=== PATIENT | male | born 1970 | race Hispanic/Latino ===

== ENCOUNTER 2018-08-11 12:10 | Observation (INO) | payer BC, OTHER ==
[~2018-08-11] VITALS: Ht 182.9 cm; Wt 87.5 kg
[~2018-08-11 12:10] MED LIST: KLONOPIN0.5 MG PO; NEXIUM40 MG PO
--- OUTSIDE RECORDS SUMMARY | 2018-08-11 12:13 | XMS REPORT | Encounter Summary ---
Author Organization Unknown Address [address] [place] [address] Phone [phone] Reason for Visit Medical Complaint Instructions 1. Infected insect bite triamcinolone acetonide 0.1 % topical cream Discussion Note: None recorded. Patient educational handouts: No information available. Plan of Care Patient Instructions use medication as directed. continue with clinda. follow up pcp Reminders Provider Appointments None recorded. Lab None recorded. Referral None recorded. Procedures None recorded. Surgeries None recorded. Imaging None recorded. Medications Name Start Date clindamycin 300 mg capsule triamcinolone acetonide 0.1 % topical cream APPLY A THIN LAYER TO THE AFFECTED AREA(S) BY TOPICAL ROUTE 2 TIMES PER DAY Medications Administered None recorded. Vitals Height Weight BMI Blood Pressure 6 ft 200 lbs 27.1 128/74 Lab Results None recorded. Allergies Code Code System Name Reaction Severity Onset 903332 RxNorm Bactrim Chest Pain Severe 493129 RxNorm Cipro Chest Pain Iodinated Contrast Media - Oral and Iv Dye Rash Moderate Penicillins Chest Pain Severe Sulfa (Sulfonamide Antibiotics) Chest Pain Severe Problems Name Status Onset Date Source Acute Sinusitis Active Encounter Acute Maxillary Sinusitis Active Encounter Allergic Rhinitis Active Encounter Cellulitis Active Encounter Dysuria Active Encounter Discharge from Penis Active Encounter Nonvenomous Insect Bite of Trunk with Infection Active Encounter Procedures Date Name Performed by Appendectomy Information not available Vaccine List Vaccine Type Tdap 09/10/2012 Social History Smoking Status Never Smoker Past Encounters 08/21/2016 Infected Insect Bite Steven Aguilar [facility]-C: [address] [place] [address], Ph. History of Present Illness Hyxf-Ajlzhmk-Zbmhc-Skin Lesion-Bite 1 Reported By: Patient HPI: Location: feet. Quality: itchy, painful, localized. Severity: mild, moderate. Duration: has noted for <1 week. Onset/Timing: abrupt onset. Context: no new detergents or skin products, no one else with similar rash, bite/sting exposure. Aggravating factors: nothing makes it worse. Associated Symptoms: no fever/chills, no muscle aches, no headache, no cold symptoms, no nausea, no vomiting, no diarrhea, no urinary symptoms Review of Systems:ROS as noted in the HPI Review of Systems Basic Reported By: Patient Physical Exam Adult Basic, Adult Male Complete Reported By: Patient Constitutional: General Appearance: healthy-appearing, well-nourished, well-developed. Level of Distress: NAD. Ambulation: ambulating normally Psychiatric: Mental Status: active and alert Lungs: Respiratory effort: no dyspnea, no tachypnea, no use of accessory muscles, no intercostal retractions. Auscultation: breath sounds normal, good air movement Cardiovascular: Heart Auscultation: RRR, no murmurs Skin: Inspection and palpation: rash; macular rash on right foot. mild erythema. no swelling. no puss or discharge
--- OUTSIDE RECORDS SUMMARY | 2018-08-11 12:13 | XMS REPORT | Continuity of Care Document ---
Author Author [facility] Interface Address Unknown Phone Unavailable Problems Problem Status Onset Date Classification Date Reported Comments Source Body mass index 25-29 - overweight 06/17/2018 Diagnosis 06/17/2018 [facility] Sore throat symptom 06/17/2018 Diagnosis 06/17/2018 [facility] Acute sinusitis 06/17/2018 Diagnosis 06/17/2018 [facility] Influenza-like illness 06/17/2018 Diagnosis 06/17/2018 [facility] Acute bacterial sinusitis 06/17/2018 Diagnosis 06/17/2018 [facility] Depressive Disorder 06/17/2018 Problem 06/17/2018 [facility] Wrist impingement syndrome 11/04/2016 Diagnosis 11/04/2016 [facility] Infected insect bite 08/21/2016 Diagnosis 08/21/2016 [facility] Acute Sinusitis Problem 11/04/2016 [facility] Acute Maxillary Sinusitis Problem 11/04/2016 [facility] Allergic Rhinitis Problem 11/04/2016 [facility] Cellulitis Problem 11/04/2016 [facility] Dysuria Problem 11/04/2016 [facility] Discharge from Penis Problem 11/04/2016 [facility] Nonvenomous Insect Bite of Trunk with Infection Problem 11/04/2016 [facility] Medications Medication Details Route Status Patient Instructions Ordering Provider Order Date Source Clonazepam 0.5 MG Oral Tablet [Klonopin] Klonopin 0.5 mg tablet Take 1 tablet 3 times a day by oral route. Active [facility] Naproxen 500 MG Oral Tablet naproxen 500 mg tablet Take 1 tablet twice a day by oral route as needed. Active [facility] Clindamycin 300 MG Oral Capsule clindamycin 300 mg capsule Active [facility] Triamcinolone Acetonide 1 MG/ML Topical Cream triamcinolone acetonide 0.1 % topical cream APPLY A THIN LAYER TO THE AFFECTED AREA(S) BY TOPICAL ROUTE 2 TIMES PER DAY Active [facility] Azelastine hydrochloride 0.137 MG/ACTUAT / Fluticasone propionate 0.05 MG/ACTUAT Metered Dose Nasal [place] [Dymista] Dymista 137 mcg-50 mcg/spray nasal spray 1 spray each nostril bid x 14days Active [facility] Oseltamivir 75 MG Oral Capsule oseltamivir 75 mg capsule Take 1 capsule twice a day by oral route as directed for 5 days. Active [facility] testosterone testosterone Active [facility] Azithromycin 250 MG Oral Tablet Zithromax Z-Murali 250 mg tablet TAKE 2 TABLETS (500 MG) BY ORAL ROUTE ONCE DAILY FOR 1 DAY THEN 1 TABLET (250 MG) BY ORAL ROUTE ONCE DAILY FOR 4 DAYS Active [facility] Allergies, Adverse Reactions, Alerts Substance Category Reaction Severity Reaction type Status Date Reported Comments Source Penicillins Chest pain Severe Allergy to substance 02/24/2011 [facility] Sulfa (Sulfonamide Antibiotics) Chest pain Severe Allergy to substance 02/24/2011 [facility] Bactrim Chest pain Severe Allergy to substance 03/16/2012 [facility] Iodinated Contrast- Oral and Iv Dye Rash Moderate Allergy to substance 03/16/2012 [facility] Iodinated Contrast Media - Oral and Iv Dye Rash Moderate Allergy to substance 03/16/2012 [facility] Cipro Chest pain Allergy to substance 01/18/2015 [facility] Immunizations Immunization Date Given Site Status Last Updated Comments Source Tdap 09/10/2012 completed [facility] Results Order Name Results Value Reference Range Date Interpretation Comments Source Influenza A negative 06/17/2018 [facility] Influenza B negative 06/17/2018 [facility] RESULT negative 06/17/2018 [facility] SWAB LOCATION Left and Right tonsillar pillars 06/17/2018 [facility] Vital Signs Vital Sign Value Date Comments Source Diastolic (mm Hg) 76 06/17/2018 [facility] Height 72 06/17/2018 [facility] Systolic (mm Hg) 116 06/17/2018 [facility] Weight 200 06/17/2018 [facility] Diastolic (mm Hg) 78 11/04/2016 [facility] Height 72 11/04/2016 [facility] Systolic (mm Hg) 118 11/04/2016 [facility] Weight 200 11/04/2016 [facility] Diastolic (mm Hg) 74 08/21/2016 [facility] Height 72 08/21/2016 [facility] Systolic (mm Hg) 128 08/21/2016 [facility] Weight 200 08/21/2016 [facility] Encounters Location Location Details Encounter Type Encounter Number Reason For Visit Attending Provider ADM Date DC Date Status Source [place] - [facility] - [id number] Steven Aguilar, DIRECTOR OF PLACEMENT-C: [address] [place] [address], Ph. [phone] [id number] Steven Robinsuyen 08/21/2016 [facility] [place] - [facility] - [id number] Villegas Lauren, DIRECTOR OF PLACEMENT: [address] [place] [address], Ph. [id number] Nelly Aguilar 11/04/2016 [facility] [place] - [facility] - [id number] Nelly Aguilar, DIRECTOR OF PLACEMENT: [address] [facility] [address], Ph. [id number] Nelly Aguilar 06/17/2018 [facility] [place] - [facility] - [id number] Nelly Aguilar, DIRECTOR OF PLACEMENT: [address] [facility] [place] [address], Ph. [id number] Nelly Aguilar 06/17/2018 [facility] Procedures Procedure Code Date Perfomer Comments Source Appendectomy [facility]
--- OUTSIDE RECORDS SUMMARY | 2018-08-11 12:13 | XMS REPORT | Encounter Summary ---
Author Organization Unknown Address [address] [place] [address] Phone [phone] Reason for Visit Medical Complaint Instructions 1. Wrist impingement syndrome naproxen 500 mg tablet Discussion Note: None recorded. Patient educational handouts: No information available. Plan of Care Patient Instructions Due to clinic limitation, pt is advise to follow up with pcp or urgent care for imaging and further evaluation. If noted worsening over night with radiating pain, seek ER. Ok to use wrist splinter. Reminders Provider Appointments None recorded. Lab None recorded. Referral None recorded. Procedures None recorded. Surgeries None recorded. Imaging None recorded. Medications Name Start Date Klonopin 0.5 mg tablet Take 1 tablet 3 times a day by oral route. naproxen 500 mg tablet Take 1 tablet twice a day by oral route as needed. Medications Administered None recorded. Vitals Height Weight BMI Blood Pressure 6 ft 200 lbs 27.1 kg/m2 118/78 mm[Hg] Lab Results None recorded. Allergies Code Code System Name Reaction Severity Onset 482118 RxNorm Bactrim Chest Pain Severe 799412 RxNorm Cipro Chest Pain Iodinated Contrast- Oral and Iv Dye Rash Moderate Penicillins [...] History Smoking Status Never Smoker Past Encounters 11/04/2016 Wrist Impingement Syndrome SALBADOR Aguilar: [address] [facility], [place] [address], Ph. History of Present Illness Musculoskeletal Complaint Reported By: Patient HPI: Location: pain is not radiating, Location:. Quality: tingling, aching. Severity: improving, moderate (5-7). Duration: started 2days. Onset/Timing: acute. Context: atraumatic. Alleviating factors: OTC medication. Aggravating factors: movement/positioning. Associated Symptoms: no fever/chills, no warmth, no redness, no swelling, no drainage, no ecchymosis, no weakness, no numbness, no radiation, no catching/locking, no popping/clicking, no buckling, no grinding, no instability, no weight loss, no change in bowel/bladder habits, no muscle aches, no headache, tingling Review of Systems Basic Reported By: Patient Physical Exam Adult Basic, Adult Female Complete, Adult Male Complete Reported By: Patient Constitutional: General Appearance: healthy-appearing, well-nourished, well-developed. Level of Distress: NAD. Ambulation: ambulating normally Psychiatric: Mental Status: active and alert. Orientation: to time, to place, to person Eyes: Lids and Conjunctivae: non-injected, no discharge, no pallor. Pupils: PERRLA. Corneas: grossly intact. EOM: EOMI. Lens: clear. Sclerae: non-icteric. Vision: acuity grossly intact Mqa-Sfvg-Nxoqy-Throat: Ears: no lesions on external ear, no outer ear tenderness, EACs clear, TMs clear. Hearing: no hearing loss. Nose: no lesions on external nose, nares patent, no septal deviation, nasal passages clear, no sinus tenderness, no nasal discharge. Lips, Teeth, and Gums: no mouth or lip ulcers, no bleeding gums, normal dentition. Oropharynx: moist mucous membranes, no erythema, no exudates, tonsils not enlarged Neck: Neck: supple, trachea midline, no masses, FROM. Lymph Nodes: no cervical LAD, no supraclavicular LAD. Thyroid: no enlargement, non-tender, no nodules Lungs: Respiratory effort: no dyspnea, no tachypnea, no use of accessory muscles, no intercostal retractions. Auscultation: breath sounds normal Cardiovascular: Heart Auscultation: RRR, no murmurs. Neck vessels: no carotid bruits Musculoskeletal:: Motor Strength and Tone: normal motor strength, normal tone, normal. Joints, Bones, and Muscles: normal movement of all extremities, no bony abnormalities, no contractures, no malalignment, tenderness. Extremities: no cyanosis, no edema, no varicosities, no palpable cord Neurologic: Gait and Station: normal gait, normal station. Cranial Nerves: grossly intact. Sensation: grossly intact. Reflexes: DTRs 2+ bilaterally throughout. Coordination and Cerebellum: bjknjc-hc-fpcd intact, no tremor
--- OUTSIDE RECORDS SUMMARY | 2018-08-11 12:14 | XMS REPORT | Encounter Summary ---
Author Organization Unknown Address [address] [place] [address] Phone [phone] Care Team Providers Care After School Coordinator Name Role Phone Ever Ernandez MD 3 [phone] Reason for Visit Medical Complaint Instructions 1. Acute bacterial sinusitis rapid flu (A+B) Zithromax Z-Murali 250 mg tablet Dymista 137 mcg-50 mcg/spray nasal spray 2. Influenza-like illness oseltamivir 75 mg capsule 3. Sore throat symptom rapid strep group A, throat 4. Body mass index 25-29 - overweight learning about healthy weight Discussion Note Work note given to RTW 06/19/18 Plan of Care Patient Instructions Increase fluid intake. Ibuprofen or tylenol for fever over 100F. Hand washing, vitaminC. If not improve in 3days, call clinic or see pcp. Reminders Provider Appointments None recorded. Lab Rapid Strep Group a, Throat 06/17/2018 [facility] Rapid Flu (A+B) 06/17/2018 [facility] Referral None recorded. Procedures None recorded. Surgeries None recorded. Imaging None recorded. Medications Name Start Date Dymista 137 mcg-50 mcg/spray nasal spray 1 spray each nostril bid x 14days oseltamivir 75 mg capsule Take 1 capsule twice a day by oral route as directed for 5 days. testosterone Zithromax Z-Murali 250 mg tablet TAKE 2 TABLETS (500 MG) BY ORAL ROUTE ONCE DAILY FOR 1 DAY THEN 1 TABLET (250 MG) BY ORAL ROUTE ONCE DAILY FOR 4 DAYS Medications Administered None recorded. Vitals Height Weight BMI Blood Pressure 6 ft 200 lbs 27.1 kg/m2 116/76 mm[Hg] Lab Results Date Name Specimen Result Interpretation Description Value Range Status Address Rapid Flu (A+B) Influenza a negative [facility]: [address] [place] [address] Influenza B negative [facility]: [address] [place] [address] Rapid Strep Group a, Throat Result negative [facility]: [address] [place] [address] Swab Location Left and Right tonsillar pillars [facility]: [address] [facility] Allergies Code Code System Name Reaction Severity Status Onset 140828 RxNorm Bactrim Chest Pain Severe Active 037156 RxNorm Cipro Chest Pain Active Iodinated Contrast- Oral and Iv Dye Rash Moderate Active Penicillins Chest Pain Severe Active Sulfa (Sulfonamide Antibiotics) Chest Pain Severe Active Problems Name Status Onset Date Source Depressive Disorder Active 06/17/2018 Procedures Date Name Performed by Appendectomy Information not available Vaccine List Vaccine Type Tdap 09/10/2012 Social History Smoking Status Never Smoker Past Encounters 06/17/2018 Acute Bacterial Sinusitis; Influenza-like Illness; Sore Throat Symptom; Body Mass Index 25-29 - Overweight Nelly Aguilar, [facility]: [address] [facility] , [place] [address], Ph. History of Present Illness Drtfr-Oflpbgedcg-Lzvigll Reported By: Patient HPI: Location: head/sinuses, throat. Quality: productive cough, sore throat, colored phlegm, nasal/sinus congestion. Duration: 3days. Severity: moderate. Onset/Timing: sudden. Context: no sick contacts, no foreign travel, non-smoker, allergies. Modifying factors: OTC medication. Associated Symptoms: no shortness of breath, no wheezing, no change in number of pillows needed to sleep at night, no sweats, no significant weight gain, no significant weight loss, no morning cough, no sore throat, no vomiting, no diarrhea, no rash, no nausea, no fever, no headache, green sputum, fever, muscle aches Review of Systems Basic Reported By: Patient Constitutional: Constitutional: fever Eyes: Eyes: no eye complaints Pmdm-Ggyl-Diakw-Throat: Ears: no ear complaints. Nose: nose/sinus problems. Mouth/Throat: no bleeding gums, no mouth complaints, no teeth problems, sore throat Cardiovascular: Cardiovascular: no chest pain, no shortness of breath, no known heart murmur Respiratory: Respiratory: no wheezing, no shortness of breath, cough Gastrointestinal: Gastrointestinal: no abdominal pain, no vomiting / diarrhea Genitourinary: Genitourinary: no urinary complaints, no discharge Musculoskeletal: Musculoskeletal: no muscle weakness, no arthralgias/joint pain, no back pain, muscle aches Skin: Skin: no abnormal / changing mole, no jaundice, no rashes Neurologic: Neurologic: no loss of consciousness, no weakness, no numbness, no seizures, no dizziness, no headaches Physical Exam Adult Basic, 14-21 Yr Male, Adult Male Complete Reported By: Patient Constitutional: General Appearance: well-nourished, well-developed, overweight. Level of Distress: NAD Psychiatric: Mental Status: active and alert, normal affect, normal mood. Orientation: to time, to place, to person Eyes: Lids and Conjunctivae: non-injected, no discharge. Pupils: equal size, round, reactive to light. Sclerae: non-icteric Zjy-Nxwb-Pfqjg-Throat: Ears: no lesions on external ear, no outer ear tenderness, EACs clear, TMs clear, middle ear fluid. Nose: no lesions on external nose, nares patent, no septal deviation, nasal passages clear, sinus tenderness, nasal discharge--purulent, post nasal drip. Lips, Teeth, and Gums: no mouth or lip ulcers, no bleeding gums, normal dentition. Oropharynx: moist mucous membranes, no exudates, tonsils not enlarged, erythema Neck: Neck: supple, trachea midline. Lymph Nodes: no cervical LAD, no supraclavicular LAD. Thyroid: no enlargement, non-tender, no nodules, no asymmetry Lungs: Respiratory effort: no tachypnea. Auscultation: clear to auscultation, no wheezing, no rales/crackles, no rhonchi, no retractions Cardiovascular: Heart Auscultation: no murmurs, no gallops, no rub. Apical impulse: not displaced. Rate and rhythm: regular
--- OUTSIDE RECORDS SUMMARY | 2018-08-11 12:14 | XMS REPORT | Encounter Summary ---
Author Organization Unknown Address [address] [place] [address] Phone [phone] Care Team Providers Care Certified Nurse Operating Room Name Role Phone Ever Ernandez MD 3 [phone] Reason for Visit Medical Complaint Instructions 1. Acute bacterial sinusitis rapid flu (A+B) Zithromax Z-Murali 250 mg tablet Dymista 137 mcg-50 mcg/spray nasal spray 2. Influenza-like illness oseltamivir 75 mg capsule 3. Acute sinusitis 4. Sore throat symptom rapid strep group A, throat 5. Body mass index 25-29 - overweight learning [...] Flu (A+B) Influenza a negative [facility]: [address] [place] [address] Influenza B negative [facility]: [address] [place] [address] Rapid Strep Group a, Throat Result negative [facility]: [address] [facility] Swab Location Left and Right tonsillar pillars [facility]: [address] [place], [place] Allergies Code Code System Name Reaction Severity Status Onset 680227 RxNorm Bactrim Chest Pain Severe Active 017005 RxNorm Cipro Chest Pain Active Iodinated Contrast- [...] Encounters 06/17/2018 Acute Bacterial Sinusitis; Influenza-like Illness; Acute Sinusitis; Sore Throat Symptom; Body Mass Index 25-29 - Overweight Nelly Aguilar, [facility]: [address] [facility] , [place] [address], Ph. History of Present Illness Mmukc-Xmoknbxdrt-Kwtrros Reported By: Patient HPI: Location: head/sinuses, throat. [...] Constitutional: fever Eyes: Eyes: no eye complaints Hayu-Lcbo-Gzkuh-Throat: Ears: no ear complaints. Nose: nose/sinus problems. [...] size, round, reactive to light. Sclerae: non-icteric Fwm-Zrub-Mvnzc-Throat: Ears: no lesions on external ear, no [...]
--- NOTE | 2018-08-11 12:29 | NUR ---
PATIENT TO ROOM 8
[2018-08-11] MEDS ORDERED: ASPIRIN 81 MG CHEW TAB PO ONE ×2 (12:30→15:45)
[2018-08-11] MEDS ORDERED: LIDOCAINE VISC 2% SOLN 15 ML UDC PO ONE (12:30)
[2018-08-11] MEDS ORDERED: MAGNESIUM/ALUMINUM/SIMETHICONE 30 ML UDC PO ONE (12:30)
[2018-08-11 12:51] LABS: BASOPHILS # (AUTO) 0.1 (0.0-0.1); BASOPHILS % 1.2 % (0.0-1.0); EOSINOPHILS # (AUTO) 0.1 (0.0-0.4); EOSINOPHILS % 0.7 % (0.0-6.0); HEMATOCRIT 51.4 % (38.2-49.6); HEMOGLOBIN 16.7 g/dL (14.0-18.0); LYMPHOCYTES # (AUTO) 1.9 (1.0-3.2); LYMPHOCYTES % 25.3 % (18.0-39.1); MEAN CORPUSCULAR HEMOGLOBIN 27.3 pg (28-32); MEAN CORPUSCULAR HGB CONC 32.5 g/dL (31-35); MEAN CORPUSCULAR VOLUME 84.1 fL (81-99); MONOCYTES # (AUTO) 0.4 (0.2-0.8); MONOCYTES % 5.3 % (4.4-11.3); NEUTROPHILS # (AUTO) 4.9 (2.1-6.9); NEUTROPHILS % 66.8 % (38.7-80.0); PLATELET COUNT 257 x10e3/uL (140-360); RED BLOOD COUNT 6.11 x10e6/uL (4.3-5.7); RED CELL DISTRIBUTION WIDTH 13.5 % (11.7-14.4)
[2018-08-11] MEDS ORDERED: ASPIRIN 81 MG ENTERIC COATED PO ONE (12:58)
[2018-08-11] MEDS ORDERED: BELLADONNA ALK/PHENOBARBITAL 5 ML UDC ONE (12:59)
[2018-08-11 13:15] LABS: INR 0.89; PROTHROMBIN TIME 12.5 seconds (11.9-14.5)
[2018-08-11 13:16] LABS: PARTIAL THROMBOPLASTIN TIME 31.3 seconds (23.8-35.5)
[2018-08-11 13:25] LABS: ALANINE AMINOTRANSFERASE 47 IU/L (0-55); ALBUMIN 4.2 g/dL (3.5-5.0); ALBUMIN/GLOBULIN RATIO 1.4 (0.8-2.0); ALKALINE PHOSPHATASE 79 IU/L (40-150); ANION GAP 11.9 mmol/L (8-16); BLOOD UREA NITROGEN 16 mg/dL (7-26); BUN/CREATININE RATIO 14 (6-25); CALCIUM 9.5 mg/dL (8.4-10.2); CARBON DIOXIDE 24 mmol/L (22-29); CHLORIDE 104 mmol/L (98-107); CREATINE KINASE 172 IU/L (30-200); CREATININE, SERUM 1.15 mg/dL (0.72-1.25); EST GLOMERULAR FILTRATION RATE > 60 ML/MIN (60-); GLUCOSE 102 mg/dL (74-118); LIPASE 45 U/L (8-78); POTASSIUM 3.9 mmol/L (3.5-5.1); SODIUM 136 mmol/L (136-145)
--- NOTE | 2018-08-11 13:29 | Diagnostic Imaging Report ---
EXAMINATION: CHEST 2 VIEWS INDICATION: Intermittent palpitations, shortness of breath. COMPARISON: None FINDINGS: TUBES and LINES: None. LUNGS: Lungs are not well inflated. There is no evidence of pneumonia or pulmonary edema. PLEURA: No pleural effusion or pneumothorax. HEART AND MEDIASTINUM: The cardiomediastinal silhouette is unremarkable. BONES AND SOFT TISSUES: No acute osseous abnormality. UPPER ABDOMEN: No free air under the diaphragm. IMPRESSION: No acute radiographic abnormality. Signed by: Dr. Bhargavi Hernandez MD on 08/11/2018 1:25 PM
[2018-08-11 13:44] LABS: THYROID STIMULATING HORMONE 1.689 uIU/mL (0.350-4.940)
[2018-08-11] MEDS ORDERED: BELLADONNA ALK/PHENOBARBITAL 5 ML UDC PO SCH (15:00)
--- OUTSIDE RECORDS SUMMARY | 2018-08-11 15:48 | XMS REPORT ---
Author Author [facility] Address Unknown Phone Unavailable Care Team Providers Care Fine Jewelry Sales Associate Name Role Phone Denis ARELLANO Unavailable Unavailable Problems This patient has no known problems. Allergies, Adverse Reactions, Alerts This patient has no known allergies or adverse reactions. Medications This patient has no known medications. Results Test Description Test Time Test Comments Text Results Atomic Results Result Comments CHEST 2 VIEWS 2018-08-11 13:23:00 [place] [address] Patient Name: CHRIS SOLANO MR #: [id number] : 1970 Age/Sex: 48/M Req #: [id number] Adm Physician: Ordered by: ELENI BAUMANN DRUG ABUSE COUNSELOR Report #: [id number] Location: ER Room/Bed: Procedure: [id number] DX/CHEST 2 VIEWS Exam Date: 08/11/18 Exam Time: 1243 REPORT STATUS: Signed EXAMINATION: CHEST 2 VIEWS INDICATION: Intermittent palpitations, shortness of breath. COMPARISON: None FINDINGS: TUBES and LINES: None. LUNGS: Lungs are not well inflated. There is no evidence of pneumonia or pulmonary edema. PLEURA: No pleural effusion or pneumothorax. HEART AND MEDIASTINUM: The cardiomediastinal silhouette is unremarkable. BONES AND SOFT TISSUES: No acute osseous abnormality. UPPER ABDOMEN: No free air under the diaphragm. IMPRESSION: No acute radiographic abnormality. Signed by: Dr. Summer Hines MD on 08/11/2018 1:25 PM Dictated By: SUMMER HINES MD 1325 Transcribed By: MACK on 08/11/18 1325 COPY TO: ELENI BAUMANN NP
--- NOTE | 2018-08-11 15:57 | NUR ---
DR. ARELLANO AT BEDSIDE RE-EVALUATING PATIENT
[2018-08-11 16:17] LABS: CLARITY,URINE SL CLOUDY (CLEAR); COLOR,URINE YELLOW (YELLOW); KETONES,URINE TRACE (NEGATIVE); LEUKOCYTE ESTERASE ,URINE NEGATIVE (NEGATIVE); NITRITE,URINE NEGATIVE (NEGATIVE); PROTEIN,URINE DIPSTICK NEGATIVE (NEGATIVE)
[2018-08-11 16:18] LABS: BILIRUBIN,URINE NEGATIVE (NEGATIVE); URINE UROBILINOGEN 1 mg/dL (0.2 - 1)
[2018-08-11] MEDS ORDERED: FAMOTIDINE 20 MG TAB PO SCH (16:30)
[2018-08-11 16:31] LABS: EPITHELIAL CELLS,URINE MODERATE /LPF
[2018-08-12] MEDS ORDERED: ASPIRIN 325 MG TAB EC PO SCH (09:00)
--- NOTE | 2018-08-14 02:06 | History and Physical ---
HISTORY: He is 48-year-old male, who had a past medical history positive for anxiety disorder and hypertension, who recently came to the emergency room complaining of palpitations. Apparently, the patient left from the emergency room without me having the opportunity to see the patient, so I was never able to see him. So, for the palpitations, the patient supposed to follow up with me in the clinic in a week. MD CINTIA [place]/MONIQUE /[id number]
== END 2018-08-11 16:38 | disposition home or self-care (01) ==
LOC: ER 12:10 → ERHOLD 15:37
PROVIDERS: ADMIT Internal Medicine; ATTEND Internal Medicine
DX: R00.2 Palpitations (principal); Z88.0 Allergy status to penicillin; Z88.2 Allergy status to sulfonamides; Z88.8 Allergy status to other drugs, medicaments and biological substances; Z91.048 Other nonmedicinal substance allergy status; F41.9 Anxiety disorder, unspecified; I10 Essential (primary) hypertension; M79.601 Pain in right arm; R10.10 Upper abdominal pain, unspecified
CPT/HCPCS: 36415; 71046; 80053; 81001; 82550; 82553; 83690; 83880; 84443; 84484; 85025; 85379; 85610; 85730; 87086; 93005; 99284; G0378

== ENCOUNTER → 2020-08-30 | Day surgery (SDC) | payer OTHER ==
[~2020-08-30] MED LIST changes: +FENTANYL CITRATE/PF 100MCG/2 ML INJ ONE; +MIDAZOLAM HCL 2 MG/2 ML VIAL ONE; +PROPOFOL IV EMULSION 10 MG/ML 20 ML VIAL ONE
[2020-08-30 14:20] VITALS: BP 109/88
== END | disposition home or self-care (01) ==
LOC: OR 09:47
PROVIDERS: ATTEND Internal Medicine Gastroenterology
CPT/HCPCS: 45378; 45384; 45385; 93005; J2250; J3010; U0002